=== PATIENT | female | born 1990 | race Caucasian/White ===

== ENCOUNTER 2017-03-01 11:38 | Emergency (ER) | payer OTHER ==
[2017-03-01 12:09] LABS: BASOPHILS 0.1 % (0-2); EOSINOPHILS 0.7 % (0-7); HEMATOCRIT 33.2 % (36.0-48.0); HEMOGLOBIN 11.8 g/dL (12-16); IMMATURE GRANULOCYTES 0.2 % (0-5); LYMPHOCYTES 20.6 % (15-50); MCH 31.1 pg (26.0-34.0); MCHC 35.5 g/dL (31.0-37.0); MCV 87.4 fL (80.0-100.0); MEAN PLATELET VOLUME 8.8 fL (7.4-10.4); MONOCYTES 10.8 % (2-11); NEUTROPHILS 67.6 % (40-80); PLATELET COUNT 319 10x3/uL (130-400); RDW 13.4 % (11.5-14.5); WBC 12.1 10x3/uL (4.8-10.8)
[2017-03-01 12:32] LABS: ALBUMIN 3.9 g/dL (3.4-5.0); ALKALINE PHOSPHATASE 49 U/L (46-116); ALT (SGPT) 34 U/L (10-68); BILIRUBIN - TOTAL 0.85 mg/dL (0.2-1.3); CALC OSMOLALITY 280 mosm/kg (275-300); CARBON DIOXIDE 21.1 mmol/L (21.0-32.0); CHLORIDE - SERUM 107 mmol/L (98-107); CREATININE - SERUM 0.8 mg/dL (0.6-1.3); GLUCOSE 95 mg/dL (74-106); POTASSIUM - SERUM 3.2 mmol/L (3.5-5.1); PROTEIN - SERUM 7.4 g/dL (6.4-8.2); SODIUM 142 mmol/L (136-145); UREA NITROGEN 7 mg/dL (7-18); eGFR NON AFRICAN AMERICAN > 90 mL/min (90-120)
[2017-03-01 12:43] LABS: HCG - QUANTITATIVE (MATERNAL) 50065 mIU/mL
[2017-03-01 12:49] LABS: HCG SERUM POSITIVE (NEGATIVE)
[2017-03-01 12:51] LABS: UDS - AMPHET POSITIVE QUAL (NEGATIVE); UDS - BARB NEGATIVE QUAL (NEGATIVE); UDS - BENZO NEGATIVE QUAL (NEGATIVE); UDS - COCAINE NEGATIVE QUAL (NEGATIVE); UDS - METH NEGATIVE QUAL (NEGATIVE); UDS - OPIATE NEGATIVE QUAL (NEGATIVE); UDS - PCP NEGATIVE QUAL (NEGATIVE); UDS - THC POSITIVE QUAL (NEGATIVE)
[2017-03-01 13:10] LABS: APPEARANCE TURBID (CLEAR); BACTERIA MANY /hpf (NONE SEEN); BILIRUBIN NEGATIVE (NEGATIVE); COLOR DK YELLOW (YELLOW); GLUCOSE NEGATIVE (NEGATIVE); KETONE SMALL mg/dL (NEGATIVE); LEUKOCYTE ESTERASE 1+ (NEGATIVE); NITRITE NEGATIVE (NEGATIVE); PROTEIN 1+ mg/dL (NEGATIVE); SPECIFIC GRAVITY 1.025 (1.005-1.020)
[2017-03-01 13:11] LABS: MUCUS >1+ /lpf (NONE SEEN)
== END 2017-03-01 14:09 | disposition home or self-care (01) ==
LOC: D.ER 11:38
PROVIDERS: Emergency Medicine; Nurse Practitioner Acute Care
DX: O26.892 Other specified pregnancy related conditions, second trimester (principal); Z3A.15 15 weeks gestation of pregnancy; F15.10 Other stimulant abuse, uncomplicated; F12.10 Cannabis abuse, uncomplicated; O02.81 Inappropriate change in quantitative human chorionic gonadotropin (hCG) in early pregnancy; N76.0 Acute vaginitis; F41.9 Anxiety disorder, unspecified; R45.1 Restlessness and agitation; F32.9 Major depressive disorder, single episode, unspecified; F17.200 Nicotine dependence, unspecified, uncomplicated

== ENCOUNTER 2017-03-16 21:02 | Emergency (ER) | payer OTHER | END 2017-03-16 22:00 | disposition left against medical advice (07) | LOC: D.ER 21:02 | DX: R10.13 Epigastric pain (principal) ==

== ENCOUNTER → 2017-04-26 19:17 | Outpatient (CLI) | payer OTHER | END | disposition home or self-care (01) | LOC: D.LDO 19:17 → D.ER 19:17 → EDSTATUS 19:19 | DX: O26.892 Other specified pregnancy related conditions, second trimester (principal); Z3A.21 21 weeks gestation of pregnancy; R10.9 Unspecified abdominal pain ==

== ENCOUNTER 2017-06-22 19:51 | Outpatient (CLI) | payer MEDICAID ==
[2017-08-13 16:03] VITALS: BMI 37.4
== END 2017-06-22 20:45 | disposition home or self-care (01) ==
LOC: D.LDO 19:51
DX: O26.899 Other specified pregnancy related conditions, unspecified trimester (principal); Z3A.00 Weeks of gestation of pregnancy not specified

== ENCOUNTER 2017-07-21 00:35 | Outpatient (CLI) | payer MEDICAID ==
[2017-08-13 16:03] VITALS: BMI 37.4
== END 2017-07-21 01:12 | disposition home or self-care (01) ==
LOC: D.LDO 00:35
DX: O26.893 Other specified pregnancy related conditions, third trimester (principal); Z3A.33 33 weeks gestation of pregnancy; K82.9 Disease of gallbladder, unspecified

== ENCOUNTER 2017-08-13 12:36 | Inpatient (IN) | payer MEDICAID ==
[~2017-08-13] VITALS: Ht 185.4 cm; Wt 128.4 kg
--- NOTE | ~2017-08-13 | DS ---
PATIENT:CHRISTAL TEJADA :89 MEDICAL RECORD: [id number] DISCHARGE SUMMARY ADMISSION DATE: 08/13/17 DISCHARGE DATE: 08/16/17 HISTORY: The patient is a 27-year-old G1, P0, at 36 weeks and 6 days. The patient with elevated blood pressures in the office and sent to L&D for evaluation. Upon examination and evaluation, the patient with a reactive NST; however, with baseline changed to approximately 100, moderate variability without any decels. Biophysical profile was performed and found to be 6/10. The patient with continued elevated blood pressures, but not in the severe range. Decision at that time made to proceed with induction of labor due to gestational hypertension with possible mild preeclampsia and biophysical profile of 10. The patient was noted to be AB negative, group B strep unknown and rubella immune, and the patient had a past medical history significant for; 1. 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 2. THC. 3. Active cholelithiasis. 4. Positive for tobacco. 5. Obesity. 6. Rh negative. The patient also has history of asthma and depression and reported bipolar disorder. SURGICAL HISTORY: Significant for tonsillectomy and adenoidectomy. ALLERGIES: The patient reported no known allergies. MEDICATIONS: Included Tylenol PM and vitamins. FAMILY HISTORY: The patient reported a family history significant for a parent with cardiovascular disease and a sibling with diabetes. SOCIAL HISTORY: The patient reported a social history significant for smoking everyday, past use of marijuana and methamphetamine at the present. PHYSICAL EXAMINATION: VITAL SIGNS: On initial examination of the patient noted to be afebrile, blood pressures range in the 140s to 150s over 60s to 90s. LUNGS: Clear to auscultation. CARDIOVASCULAR: Regular rate and rhythm. PELVIC: Uterus was appropriately sized and nontender. EXTREMITIES: Lower extremities were free of Homans sign, swelling or erythema. On initial assessment, heart rate tracing was noted to be at approximately 100, moderate variability and contractions. LABORATORY DATA: Preeclamptic labs were noted to be within normal limits. Normal LFTs, normal creatinine. Hemoglobin was 10.6 with a white count of 12.1 and a platelet count of 242. UDS was negative. Urine was negative for protein. ASSESSMENT AND PLAN: At this time was; 1. Gestational hypertension at 36 weeks and 6 days. 2. The biophysical profile of 01/09. 3. History of polysubstance abuse with methamphetamine. The patient reports in DISCHARGE SUMMARY REPORT [id number] CHRISTAL TEJADA recovery. 4. Positive smoker. 5. Cholelithiasis. 6. Rh negative. Plan at that time for Pitocin induction of labor for gestational hypertension and biophysical profile 01/09. The patient continued to have a subsequent heart rate between 100 and 110 with moderate variability and accelerations. Risks of prematurity were discussed with the patient. The patient was placed on Pitocin for approximately 16 hours without appreciable cervical change. The patient had a category 1 tracing throughout. Options were discussed, it was felt at that time because of the biophysical and gestational hypertension and the patient now at term, that the safest route of action would be to proceed with . Risks and benefits were explained. The patient voiced understanding and consent. Primary low transverse section was performed and the operative report is as dictated. The patient did well overnight on postop day #0 with a Dilaudid GAS REVERSER, IV Toradol, IV fluids, tolerating clear liquid diet. Uterus was infraumbilical and appropriately tender. Lower extremities were free of Homans sign. Soares catheter in place and draining freely. On the morning of postop day #1, status post low transverse section, the patient continued to do well. Vital signs are stable. The patient was afebrile. Hemoglobin was stable. Incision was clean, dry and intact. Uterus was infraumbilical and appropriately tender. At that time, the patient was advanced to general diet, p.o. pain meds. Soares was discontinued and ambulation was begun. The patient continued to do well overnight on postop day #1. On the morning of postop day #2, vital signs remained stable. The patient was afebrile, blood pressure normalizing, hemoglobin was found to be stable. Incision was clean, dry and intact. Uterus was infraumbilical and appropriately tender. Minimal lochia at that time. The patient was tolerating general diet, p.o. pain meds and ambulating well. The patient was discharged home on postop day #2 with instructions to follow up in 1 week for staple removal and for blood pressure check. TRANSINT:[id number] Voice Confirmation ID: [id number] DOCUMENT ID: [id number] VINI POZO MD CC: [id number] DICTATION DATE: 09/11/17 0628 HOUSEKEEPER: 09/11/17 1009 DIS IN 08/16/17 [place] [id number] [place] [id number]
[2017-08-13 14:05] LABS: BASOPHILS 0.1 % (0-2); EOSINOPHILS 0.9 % (0-7); HEMATOCRIT 32.6 % (36.0-48.0); HEMOGLOBIN 10.6 g/dL (12-16); IMMATURE GRANULOCYTES 0.2 % (0-5); LYMPHOCYTES 14.7 % (15-50); MCH 30.7 pg (26.0-34.0); MCHC 32.5 g/dL (31.0-37.0); MCV 94.5 fL (80.0-100.0); MEAN PLATELET VOLUME 9.9 fL (7.4-10.4); MONOCYTES 10.2 % (2-11); NEUTROPHILS 73.9 % (40-80); RBC 3.45 10x6/uL (4.00-5.40); RDW 13.6 % (11.5-14.5); WBC 12.1 10x3/uL (4.8-10.8)
[2017-08-13 14:08] LABS: APPEARANCE CLEAR (CLEAR); BILIRUBIN NEGATIVE (NEGATIVE); COLOR YELLOW (YELLOW); GLUCOSE NEGATIVE (NEGATIVE); KETONE NEGATIVE (NEGATIVE); NITRITE NEGATIVE (NEGATIVE); PLATELET COUNT 242 10x3/uL (130-400); PROTEIN NEGATIVE (NEGATIVE); UROBILINOGEN NORMAL (NORMAL)
[2017-08-13 14:23] LABS: ALBUMIN 2.6 g/dL (3.4-5.0); ALKALINE PHOSPHATASE 70 U/L (46-116); ALT (SGPT) 16 U/L (10-68); BILIRUBIN - INDIRECT 0.11 mg/dL (0.00-1.00); BILIRUBIN - TOTAL 0.14 mg/dL (0.2-1.3); CALC OSMOLALITY 266 mosm/kg (275-300); CALCIUM 8.8 mg/dL (8.5-10.1); CARBON DIOXIDE 23.6 mmol/L (21.0-32.0); CHLORIDE - SERUM 103 mmol/L (98-107); CREATININE - SERUM 0.6 mg/dL (0.6-1.3); GLUCOSE 81 mg/dL (74-106); POTASSIUM - SERUM 3.9 mmol/L (3.5-5.1); PROTEIN - SERUM 6.3 g/dL (6.4-8.2); SODIUM 135 mmol/L (136-145); UREA NITROGEN 7 mg/dL (7-18); URIC ACID 4.3 mg/dL (2.6-7.2); eGFR NON AFRICAN AMERICAN > 90 mL/min (90-120)
[2017-08-13 14:24] LABS: BILIRUBIN - DIRECT 0.03 mg/dL (0.00-0.30)
[2017-08-13] MEDS ORDERED: TYLENOL PM1 TAB PO (16:02)
[2017-08-13] MEDS ORDERED: PRENATAL COMPLE1 TAB PO (16:02)
[2017-08-13 16:03] VITALS: BP 141/64; Ht 185.4 cm; Wt 128.4 kg
[2017-08-13 16:18] LABS: UDS - AMPHET NEGATIVE QUAL (NEGATIVE); UDS - BARB NEGATIVE QUAL (NEGATIVE); UDS - BENZO NEGATIVE QUAL (NEGATIVE); UDS - COCAINE NEGATIVE QUAL (NEGATIVE); UDS - OPIATE NEGATIVE QUAL (NEGATIVE); UDS - PCP NEGATIVE QUAL (NEGATIVE); UDS - THC NEGATIVE QUAL (NEGATIVE)
[2017-08-14] VITALS (15 sets, daily range): BP systolic 112–164; BP diastolic 58–91
[2017-08-14 20:12] LABS: BASOPHILS 0.2 % (0-2); EOSINOPHILS 0.4 % (0-7); HEMATOCRIT 30.2 % (36.0-48.0); HEMOGLOBIN 9.9 g/dL (12-16); IMMATURE GRANULOCYTES 0.5 % (0-5); LYMPHOCYTES 10.4 % (15-50); MCH 30.4 pg (26.0-34.0); MCHC 32.8 g/dL (31.0-37.0); MCV 92.6 fL (80.0-100.0); MEAN PLATELET VOLUME 10.2 fL (7.4-10.4); MONOCYTES 7.7 % (2-11); NEUTROPHILS 80.8 % (40-80); PLATELET COUNT 195 10x3/uL (130-400); RBC 3.26 10x6/uL (4.00-5.40); RDW 13.2 % (11.5-14.5)
[2017-08-15 00:56] VITALS: BP 130/72
[2017-08-15 05:49] VITALS: BP 122/71
[2017-08-15 06:16] LABS: BASOPHILS 0.1 % (0-2); EOSINOPHILS 0.6 % (0-7); HEMATOCRIT 29.7 % (36.0-48.0); HEMOGLOBIN 9.6 g/dL (12-16); IMMATURE GRANULOCYTES 0.4 % (0-5); LYMPHOCYTES 21.8 % (15-50); MCH 30.2 pg (26.0-34.0); MCHC 32.3 g/dL (31.0-37.0); MCV 93.4 fL (80.0-100.0); MONOCYTES 11.3 % (2-11); NEUTROPHILS 65.8 % (40-80); PLATELET COUNT 197 10x3/uL (130-400); RBC 3.18 10x6/uL (4.00-5.40); RDW 13.3 % (11.5-14.5)
[2017-08-15 06:23] LABS: WBC 7.9 10x3/uL (4.8-10.8)
[2017-08-15 07:25] VITALS: BP 125/58
[2017-08-15 13:13] VITALS: BP 130/60
[2017-08-15 19:13] VITALS: BP 151/70
[2017-08-16 00:31] VITALS: BP 138/64
[2017-08-16 04:21] VITALS: BP 127/61
[2017-08-16 08:59] VITALS: BP 136/62
[2017-08-17 03:10] LABS: RAPID PLASMA REAGIN Non Reactive (Non Reactive)
== END 2017-08-16 13:55 | disposition home or self-care (01) | DRG 765 ==
LOC: D.LDO 12:36 → D.LD 15:25
PROVIDERS: Obstetrics & Gynecology
PROC: 10D00Z1 Extraction of Products of Conception, Low, Open Approach (ICD-10-PCS; principal; 2017-08-14 13:00)
DX: O13.4 Gestational [pregnancy-induced] hypertension without significant proteinuria, complicating childbirth (principal); O98.32 Other infections with a predominantly sexual mode of transmission complicating childbirth; Z3A.36 36 weeks gestation of pregnancy; Z37.0 Single live birth; O99.214 Obesity complicating childbirth; O99.334 Smoking (tobacco) complicating childbirth; O26.893 Other specified pregnancy related conditions, third trimester; Z67.91 Unspecified blood type, Rh negative; O99.62 Diseases of the digestive system complicating childbirth

== ENCOUNTER 2019-09-26 00:09 | Emergency (ER) | payer MEDICAID ==
[~2019-09-26] VITALS: Ht 185.4 cm; Wt 95.5 kg
[~2019-09-26 00:09] MED LIST: PRENATAL COMPLE1 TAB PO; TYLENOL PM1 TAB PO
[2019-09-26 00:19] VITALS: Ht 185.4 cm; Wt 95.5 kg
[2019-09-26 00:52] LABS: BASOPHILS 0.3 % (0-2); EOSINOPHILS 3.1 % (0-7); HEMATOCRIT 37.6 % (36.0-48.0); HEMOGLOBIN 12.8 g/dL (12-16); IMMATURE GRANULOCYTES 0.1 % (0-5); LYMPHOCYTES 29.5 % (15-50); MCH 31.2 pg (26.0-34.0); MCV 91.7 fL (80.0-100.0); MEAN PLATELET VOLUME 8.8 fL (7.4-10.4); MONOCYTES 5.9 % (2-11); NEUTROPHILS 61.1 % (40-80); RDW 12.9 % (11.5-14.5); WBC 7.7 10x3/uL (4.8-10.8)
[2019-09-26 00:53] LABS: CALC OSMOLALITY 287 mosm/kg (275-300); CALCIUM 8.1 mg/dL (8.5-10.1); CARBON DIOXIDE 28.5 mmol/L (21.0-32.0); CHLORIDE - SERUM 107 mmol/L (98-107); CREATININE - SERUM 0.9 mg/dL (0.6-1.3); PLATELET COUNT 273 10x3/uL (130-400); POTASSIUM - SERUM 3.8 mmol/L (3.5-5.1); SODIUM 144 mmol/L (136-145); UREA NITROGEN 10 mg/dL (7-18); eGFR NON AFRICAN AMERICAN 80 mL/min (90-120)
[2019-09-26 00:55] LABS: HCG SERUM NEGATIVE (NEGATIVE)
[2019-09-26 00:57] LABS: GLUCOSE 135 mg/dL (74-106)
[2019-09-26 00:59] LABS: ALBUMIN 3.7 g/dL (3.4-5.0); ALKALINE PHOSPHATASE 72 U/L (30-120); ALT (SGPT) 151 U/L (10-68); BILIRUBIN - TOTAL 0.16 mg/dL (0.2-1.3); LIPASE 121 U/L (73-393); PROTEIN - SERUM 6.7 g/dL (6.4-8.2)
[2019-09-26] MEDS ORDERED: HYDROCODON-ACE1 EAC7 PO (01:04)
[2019-09-26 01:15] VITALS: BP 138/82
== END 2019-09-26 01:15 | disposition home or self-care (01) ==
LOC: D.ER 00:09
PROVIDERS: Emergency Medicine
DX: K80.50 Calculus of bile duct without cholangitis or cholecystitis without obstruction (principal); J45.909 Unspecified asthma, uncomplicated; Z72.0 Tobacco use; R10.11 Right upper quadrant pain

== ENCOUNTER 2020-01-24 15:32 | Inpatient (IN) | payer MEDICAID ==
[~2020-01-24] VITALS: Ht 185.4 cm; Wt 104.5 kg
[~2020-01-24 15:32] MED LIST changes: +HYDROCODON-ACE1 EAC7 PO
[2020-01-24 16:08] LABS: BASOPHILS 0.3 % (0-2); EOSINOPHILS 2.2 % (0-7); HEMATOCRIT 39.1 % (36.0-48.0); HEMOGLOBIN 13.1 g/dL (12-16); IMMATURE GRANULOCYTES 0.2 % (0-5); LYMPHOCYTES 15.5 % (15-50); MCH 30.7 pg (26.0-34.0); MCHC 33.5 g/dL (31.0-37.0); MCV 91.6 fL (80.0-100.0); MONOCYTES 6.5 % (2-11); NEUTROPHILS 75.3 % (40-80); PLATELET COUNT 298 10x3/uL (130-400); RBC 4.27 10x6/uL (4.00-5.40); RDW 12.6 % (11.5-14.5)
[2020-01-24 16:19] LABS: ANION GAP 8.8 mmol/L (8-16); CALCIUM 9.4 mg/dL (8.5-10.1); CREATININE - SERUM 1.2 mg/dL (0.6-1.3); POTASSIUM - SERUM 3.8 mmol/L (3.5-5.1)
[2020-01-24 16:22] LABS: BILIRUBIN NEGATIVE (NEGATIVE); GLUCOSE NEGATIVE (NEGATIVE); KETONE SMALL mg/dL (NEGATIVE); NITRITE NEGATIVE (NEGATIVE); SPECIFIC GRAVITY 1.015 (1.005-1.020); UROBILINOGEN NORMAL (NORMAL)
[2020-01-24 16:23] LABS: BACTERIA MODERATE /hpf (NEGATIVE); EPITHELIAL CELLS 0-5 /hpf (0-5); RED CELLS - URINE OCC /hpf (0-5); WHITE CELLS - URINE 0-5 /hpf (NEGATIVE)
[2020-01-24 16:24] LABS: HCG URINE NEGATIVE (NEGATIVE)
[2020-01-24 16:25] LABS: ALBUMIN 4.6 g/dL (3.4-5.0); BILIRUBIN - TOTAL 0.83 mg/dL (0.2-1.3); PROTEIN - SERUM 7.8 g/dL (6.4-8.2)
--- NOTE | 2020-01-24 19:00 | NUR ---
PATIENT TO U/S VIA W/C.
[2020-01-24 20:53] LABS: INR 1.07 (0.85-1.17); PROTIME 13.8 SECONDS (11.6-15.0)
--- NOTE | 2020-01-24 21:02 | NUR ---
PT SITTING UP IN BED. PT DENIES ANY COMPLAITNS. NO NEEDS AT THIS TIME.
--- NOTE | 2020-01-24 21:30 | NUR ---
MEFOXIN INFUSION COMPLETE AT THIS TIME.
--- NOTE | 2020-01-25 00:15 | NUR ---
RECIEVED TO ROOM VIA WHEELCHAIR ACCOMPANIED BY ER STAFF. A&O X 4, AMBULATES INDEPENDENTLY. DENIES N/V/PAIN. IV TO RIGHT AC PATENT. NS INFUSING AT 125. VERBALIZED UNDERSTANDING OF NPO STATUS. DENIES CURENT MEDICATIONS OTHER THAN MEDICAL MARIJUANA. REPORTS SHE IS A DAILY SMOKER. PT INFORMATION PACKET AND SECURITY CODE SHEET GIVEN. DENIES NEEDS AT THIS TIME, WILL CTM.
[2020-01-25 02:13] VITALS: BMI 30.4
[2020-01-25 04:00] VITALS: BP 110/27
[2020-01-25 05:29] LABS: HEMATOCRIT 36.8 % (36.0-48.0); HEMOGLOBIN 12.1 g/dL (12-16); MCH 30.3 pg (26.0-34.0); MCHC 32.9 g/dL (31.0-37.0); PLATELET COUNT 261 10x3/uL (130-400); RDW 12.6 % (11.5-14.5)
[2020-01-25 05:47] LABS: ANION GAP 8.4 mmol/L (8-16); CALCIUM 8.5 mg/dL (8.5-10.1); CARBON DIOXIDE 28.5 mmol/L (21.0-32.0); CREATININE - SERUM 1.1 mg/dL (0.6-1.3); POTASSIUM - SERUM 3.9 mmol/L (3.5-5.1); WBC 6.3 10x3/uL (4.8-10.8)
[2020-01-25 10:29] VITALS: Ht 185.4 cm; Wt 104.5 kg
[2020-01-25 11:05] VITALS: BP 124/52
[2020-01-25 12:16] LABS: EOSINOPHILS 1 % (0-7); LYMPHOCYTES 31 % (15-50); MONOCYTES 10 % (2-11); NEUTROPHILS 58 % (40-80); PLATELET ESTIMATE NORMAL
[2020-01-25] MEDS ORDERED: HYDROCODON-ACE1 EAC7 PO (14:08)
== END 2020-01-25 19:15 | disposition home or self-care (01) | DRG 419 ==
LOC: D.ER 15:32 → D.MS 20:50
PROVIDERS: Family Medicine; ADMIT Surgery; ATTEND Surgery
PROC: 0FT44ZZ Resection of Gallbladder, Percutaneous Endoscopic Approach (ICD-10-PCS; principal; 2020-01-25 13:15)
DX: K80.00 Calculus of gallbladder with acute cholecystitis without obstruction (principal)

== ENCOUNTER 2020-10-03 11:06 | Emergency (ER) | payer MEDICAID ==
[~2020-10-03] VITALS: Ht 185.4 cm; Wt 101.2 kg
[2020-10-03 11:11] VITALS: Ht 185.4 cm; Wt 101.2 kg
[2020-10-03] MEDS ORDERED: PHENERGAN25 M1 PO (11:14)
[2020-10-03 11:49] LABS: BASOPHILS 0.1 % (0-2); EOSINOPHILS 1.5 % (0-7); HEMATOCRIT 33.7 % (36.0-48.0); HEMOGLOBIN 11.5 g/dL (12-16); IMMATURE GRANULOCYTES 0.2 % (0-5); LYMPHOCYTE ABS# 1.24 10x3/uL (1.18-3.74); LYMPHOCYTES 13.4 % (15-50); MCH 31.7 pg (26.0-34.0); MCHC 34.1 g/dL (31.0-37.0); MCV 92.8 fL (80.0-100.0); MONOCYTES 7.9 % (2-11); NEUTROPHILS 76.9 % (40-80); PLATELET COUNT 218 10x3/uL (130-400); RBC 3.63 10x6/uL (4.00-5.40); WBC 9.2 10x3/uL (4.8-10.8)
[2020-10-03 12:02] LABS: CALC OSMOLALITY 265 mosm/kg (275-300); CALCIUM 9.1 mg/dL (8.5-10.1); CARBON DIOXIDE 27.1 mmol/L (21.0-32.0); CHLORIDE - SERUM 103 mmol/L (98-107); CREATININE - SERUM 0.7 mg/dL (0.6-1.3); GLUCOSE 86 mg/dL (74-106); POTASSIUM - SERUM 3.7 mmol/L (3.5-5.1); SODIUM 135 mmol/L (136-145); UREA NITROGEN 5 mg/dL (7-18); eGFR NON AFRICAN AMERICAN > 90 mL/min (90-120)
[2020-10-03 12:22] LABS: BILIRUBIN NEGATIVE (NEGATIVE); KETONE NEGATIVE (NEGATIVE); NITRITE NEGATIVE (NEGATIVE); UROBILINOGEN NORMAL mg/dL (< 2)
[2020-10-03 12:24] LABS: ALBUMIN 3.3 g/dL (3.4-5.0); ALKALINE PHOSPHATASE 42 U/L (30-120); ALT (SGPT) 33 U/L (10-68); BACTERIA FEW HPF (NONE SEEN); BILIRUBIN - TOTAL 0.18 mg/dL (0.2-1.3); HCG - QUANTITATIVE (MATERNAL) 20857 mIU/mL; PROTEIN - SERUM 6.3 g/dL (6.4-8.2); SQUAMOUS EPITHELIAL 0-5 HPF (0-4); WHITE CELLS - URINE 0-5 HPF (0-4)
[2020-10-03 13:32] VITALS: BP 126/63
== END 2020-10-03 13:33 | disposition home or self-care (01) ==
LOC: D.ER 11:06
PROVIDERS: Family Medicine
DX: O99.012 Anemia complicating pregnancy, second trimester (principal); Z3A.15 15 weeks gestation of pregnancy; R10.9 Unspecified abdominal pain

== ENCOUNTER 2020-12-26 20:33 | Emergency (ER) | payer MEDICAID ==
[~2020-12-26] VITALS: Ht 182.9 cm; Wt 107.7 kg
[~2020-12-26 20:33] MED LIST changes: +PHENERGAN25 M1 PO
[2020-12-26 20:39] VITALS: Ht 182.9 cm; Wt 107.7 kg
[2020-12-26 21:40] LABS: BASOPHILS 0.2 % (0-2); EOSINOPHILS 1.4 % (0-7); HEMATOCRIT 29.2 % (36.0-48.0); LYMPHOCYTES 16.6 % (15-50); MCH 31.6 pg (26.0-34.0); MCHC 34.1 g/dL (31.0-37.0); MCV 92.6 fL (80.0-100.0); MEAN PLATELET VOLUME 7.8 fL (7.4-10.4); MONOCYTES 7.5 % (2-11); NEUTROPHILS 74.3 % (40-80); PLATELET COUNT 252 10x3/uL (130-400); RBC 3.15 10x6/uL (4.00-5.40); RDW 13.3 % (11.5-14.5); WBC 12.4 10x3/uL (4.8-10.8)
[2020-12-26 21:41] LABS: BILIRUBIN NEGATIVE (NEGATIVE); KETONE NEGATIVE (NEGATIVE); NITRITE NEGATIVE (NEGATIVE); UROBILINOGEN NORMAL mg/dL (< 2)
[2020-12-26 21:49] LABS: CALC OSMOLALITY 276 mosm/kg (275-300); CALCIUM 8.9 mg/dL (8.5-10.1); CARBON DIOXIDE 23.3 mmol/L (21.0-32.0); CHLORIDE - SERUM 105 mmol/L (98-107); CREATININE - SERUM 0.7 mg/dL (0.6-1.3); GLUCOSE 88 mg/dL (74-106); POTASSIUM - SERUM 3.7 mmol/L (3.5-5.1); SODIUM 140 mmol/L (136-145); UREA NITROGEN 9 mg/dL (7-18); eGFR NON AFRICAN AMERICAN > 90 mL/min (90-120)
[2020-12-26 22:15] LABS: ALBUMIN 2.8 g/dL (3.4-5.0); ALKALINE PHOSPHATASE 45 U/L (30-120); ALT (SGPT) 18 U/L (10-68); BILIRUBIN - TOTAL 0.14 mg/dL (0.2-1.3); HCG - QUANTITATIVE (MATERNAL) 7239 mIU/mL; MAGNESIUM - SERUM 1.8 mg/dL (1.8-2.4); PROTEIN - SERUM 6.3 g/dL (6.4-8.2)
[2020-12-26 22:50] VITALS: BP 146/59
== END 2020-12-26 22:50 | disposition short-term general hospital (02) ==
LOC: D.ER 20:33
PROVIDERS: Family Medicine
DX: O26.892 Other specified pregnancy related conditions, second trimester (principal); Z3A.27 27 weeks gestation of pregnancy; R07.81 Pleurodynia; R10.9 Unspecified abdominal pain; I10 Essential (primary) hypertension

== ENCOUNTER 2020-12-31 08:46 | Emergency (ER) | payer MEDICAID ==
[~2020-12-31] VITALS: Ht 182.9 cm; Wt 107.7 kg
[2020-12-31 08:55] VITALS: BP 130/59; Ht 182.9 cm; Wt 107.7 kg
[2020-12-31 10:00] LABS: BASOPHILS 0.5 % (0-2); EOSINOPHILS 0.9 % (0-7); HEMATOCRIT 31.5 % (36.0-48.0); HEMOGLOBIN 10.6 g/dL (12-16); MCH 31.7 pg (26.0-34.0); MCHC 33.6 g/dL (31.0-37.0); MCV 94.3 fL (80.0-100.0); MEAN PLATELET VOLUME 7.5 fL (7.4-10.4); MONOCYTES 5.9 % (2-11); NEUTROPHILS 81.7 % (40-80); PLATELET COUNT 250 10x3/uL (130-400); RBC 3.34 10x6/uL (4.00-5.40); RDW 13.4 % (11.5-14.5); WBC 11.3 10x3/uL (4.8-10.8)
[2020-12-31 10:13] LABS: APTT 25.1 SECONDS (22.8-39.4); INR 1.14 (0.85-1.17); PROTIME 13.5 SECONDS (11.6-15.0)
[2020-12-31 10:14] LABS: D-DIMER-QUANTITATIVE 0.77 ug/mLFEU (0.20-0.54)
[2020-12-31 10:15] LABS: CALC OSMOLALITY 273 mosm/kg (275-300); CALCIUM 8.4 mg/dL (8.5-10.1); CARBON DIOXIDE 23.7 mmol/L (21.0-32.0); CHLORIDE - SERUM 104 mmol/L (98-107); CREATININE - SERUM 0.7 mg/dL (0.6-1.3); GLUCOSE 94 mg/dL (74-106); POTASSIUM - SERUM 3.8 mmol/L (3.5-5.1); SODIUM 138 mmol/L (136-145); UREA NITROGEN 6 mg/dL (7-18); eGFR NON AFRICAN AMERICAN > 90 mL/min (90-120)
[2020-12-31 10:23] LABS: ALBUMIN 2.8 g/dL (3.4-5.0); ALKALINE PHOSPHATASE 49 U/L (30-120); ALT (SGPT) 17 U/L (10-68); BILIRUBIN - TOTAL 0.19 mg/dL (0.2-1.3); PROTEIN - SERUM 6.3 g/dL (6.4-8.2)
[2020-12-31] MEDS ORDERED: CYCLOBENZAPRINE5 MG PO (13:07)
== END 2020-12-31 13:18 | disposition home or self-care (01) ==
LOC: D.ER 08:46
PROVIDERS: Student in an Organized Health Care Education/Training Program
DX: O26.893 Other specified pregnancy related conditions, third trimester (principal); Z3A.28 28 weeks gestation of pregnancy; R07.89 Other chest pain

== ENCOUNTER 2021-01-01 10:39 | Inpatient (IN) | payer MEDICAID ==
[~2021-01-01] VITALS: Ht 182.9 cm; Wt 108.9 kg
[~2021-01-01 10:39] MED LIST changes: +CYCLOBENZAPRINE5 MG PO
[2021-01-01 14:13] LABS: BASOPHILS 0.4 % (0-2); EOSINOPHILS 0.8 % (0-7); HEMATOCRIT 34.5 % (36.0-48.0); HEMOGLOBIN 11.8 g/dL (12-16); LYMPHOCYTES 13.4 % (15-50); MCH 31.8 pg (26.0-34.0); MCHC 34.1 g/dL (31.0-37.0); MCV 93.3 fL (80.0-100.0); MEAN PLATELET VOLUME 7.6 fL (7.4-10.4); MONOCYTES 6.2 % (2-11); NEUTROPHILS 79.2 % (40-80); PLATELET COUNT 278 10x3/uL (130-400); RDW 13.5 % (11.5-14.5); WBC 11.2 10x3/uL (4.8-10.8)
[2021-01-01 14:16] LABS: BILIRUBIN NEGATIVE (NEGATIVE); KETONE NEGATIVE (NEGATIVE); NITRITE NEGATIVE (NEGATIVE); UROBILINOGEN NORMAL mg/dL (< 2)
[2021-01-01 14:17] LABS: CALC OSMOLALITY 269 mosm/kg (275-300); CALCIUM 8.9 mg/dL (8.5-10.1); CARBON DIOXIDE 25.3 mmol/L (21.0-32.0); CHLORIDE - SERUM 103 mmol/L (98-107); CREATININE - SERUM 0.6 mg/dL (0.6-1.3); GLUCOSE 91 mg/dL (74-106); POTASSIUM - SERUM 3.4 mmol/L (3.5-5.1); SODIUM 136 mmol/L (136-145); UREA NITROGEN 6 mg/dL (7-18); eGFR NON AFRICAN AMERICAN > 90 mL/min (90-120)
[2021-01-01 14:23] LABS: ALBUMIN 3.2 g/dL (3.4-5.0); ALKALINE PHOSPHATASE 61 U/L (30-120); ALT (SGPT) 20 U/L (10-68); BILIRUBIN - DIRECT 0.08 mg/dL (0.00-0.30); BILIRUBIN - INDIRECT 0.14 mg/dL (0.00-1.00); BILIRUBIN - TOTAL 0.22 mg/dL (0.2-1.3); PROTEIN - SERUM 7.1 g/dL (6.4-8.2); URIC ACID 2.9 mg/dL (2.6-7.2)
[2021-01-01 17:43] VITALS: BP 130/62; Ht 182.9 cm; Wt 108.9 kg
[2021-01-02 13:01] LABS: PROTEIN - URINE 11.5 mg/dL (0.0-11.9)
[2021-01-02] MEDS ORDERED: NORMODYNE / TR100 MG PO (13:36)
[2021-01-02] MEDS ORDERED: HYDROCODON-ACE1 EAC7 PO (13:37)
== END 2021-01-02 14:10 | disposition home or self-care (01) | DRG 833 ==
LOC: D.LDO 10:39 → D.LD 13:49
PROVIDERS: ADMIT Obstetrics & Gynecology; ATTEND Obstetrics & Gynecology
DX: O13.3 Gestational [pregnancy-induced] hypertension without significant proteinuria, third trimester (principal); Z3A.28 28 weeks gestation of pregnancy; F15.10 Other stimulant abuse, uncomplicated; O99.343 Other mental disorders complicating pregnancy, third trimester; F41.8 Other specified anxiety disorders

== ENCOUNTER 2021-01-07 10:50 | Outpatient (CLI) | payer MEDICAID ==
[2021-01-01 17:43] VITALS: BMI 32.6
[~2021-01-07 10:50] MED LIST changes: +NORMODYNE / TR100 MG PO
[2021-01-07 11:45] LABS: BASOPHILS 0.2 % (0-2); EOSINOPHILS 1.1 % (0-7); HEMATOCRIT 29.7 % (36.0-48.0); HEMOGLOBIN 10.1 g/dL (12-16); LYMPHOCYTES 11.6 % (15-50); MCV 94.2 fL (80.0-100.0); MEAN PLATELET VOLUME 7.9 fL (7.4-10.4); MONOCYTES 5.7 % (2-11); NEUTROPHILS 81.4 % (40-80); RBC 3.15 10x6/uL (4.00-5.40); RDW 13.5 % (11.5-14.5); WBC 12.3 10x3/uL (4.8-10.8)
[2021-01-07 11:47] LABS: PLATELET COUNT 215 10x3/uL (130-400)
[2021-01-07 11:52] LABS: CALC OSMOLALITY 274 mosm/kg (275-300); CALCIUM 8.2 mg/dL (8.5-10.1); CARBON DIOXIDE 23.5 mmol/L (21.0-32.0); CHLORIDE - SERUM 103 mmol/L (98-107); CREATININE - SERUM 0.7 mg/dL (0.6-1.3); GLUCOSE 109 mg/dL (74-106); POTASSIUM - SERUM 3.7 mmol/L (3.5-5.1); SODIUM 138 mmol/L (136-145); UREA NITROGEN 6 mg/dL (7-18); eGFR NON AFRICAN AMERICAN > 90 mL/min (90-120)
[2021-01-07 11:57] LABS: ALBUMIN 2.5 g/dL (3.4-5.0); ALKALINE PHOSPHATASE 51 U/L (30-120); ALT (SGPT) 20 U/L (10-68); BILIRUBIN - DIRECT 0.05 mg/dL (0.00-0.30); BILIRUBIN - INDIRECT 0.12 mg/dL (0.00-1.00); BILIRUBIN - TOTAL 0.17 mg/dL (0.2-1.3); PROTEIN - SERUM 5.6 g/dL (6.4-8.2); URIC ACID 3.7 mg/dL (2.6-7.2)
== END 2021-01-07 12:15 | disposition home or self-care (01) ==
LOC: D.LDO 10:50
PROVIDERS: ATTEND Obstetrics & Gynecology
DX: O35.9XX0 Maternal care for (suspected) fetal abnormality and damage, unspecified, not applicable or unspecified (principal)

== ENCOUNTER → 2021-01-10 11:40 | Outpatient (CLI) | payer MEDICAID ==
[2021-01-01 17:43] VITALS: BMI 32.6
== END | disposition home or self-care (01) ==
LOC: D.LDO 11:40
PROVIDERS: ATTEND Obstetrics & Gynecology
DX: O16.9 Unspecified maternal hypertension, unspecified trimester (principal)

== ENCOUNTER 2021-01-17 09:59 | Outpatient (CLI) | payer MEDICAID ==
[2021-01-01 17:43] VITALS: BMI 32.6
== END 2021-01-17 11:59 | disposition home or self-care (01) ==
LOC: D.LDO 09:59
PROVIDERS: ATTEND Obstetrics & Gynecology
DX: O26.899 Other specified pregnancy related conditions, unspecified trimester (principal); Z3A.30 30 weeks gestation of pregnancy

== ENCOUNTER 2021-01-24 11:01 | Outpatient (CLI) | payer MEDICAID ==
[2021-01-01 17:43] VITALS: BMI 32.6
[2021-01-24 12:17] LABS: BASOPHILS 0.2 % (0-2); EOSINOPHILS 1.2 % (0-7); HEMATOCRIT 30.6 % (36.0-48.0); HEMOGLOBIN 10.2 g/dL (12-16); LYMPHOCYTES 12.7 % (15-50); MCH 31.3 pg (26.0-34.0); MCHC 33.4 g/dL (31.0-37.0); MCV 93.5 fL (80.0-100.0); MEAN PLATELET VOLUME 7.5 fL (7.4-10.4); MONOCYTES 7.4 % (2-11); NEUTROPHILS 78.5 % (40-80); PLATELET COUNT 241 10x3/uL (130-400); RBC 3.28 10x6/uL (4.00-5.40); WBC 11.7 10x3/uL (4.8-10.8)
[2021-01-24 12:27] LABS: CALC OSMOLALITY 274 mosm/kg (275-300); CALCIUM 8.7 mg/dL (8.5-10.1); CARBON DIOXIDE 23.3 mmol/L (21.0-32.0); CHLORIDE - SERUM 105 mmol/L (98-107); CREATININE - SERUM 0.7 mg/dL (0.6-1.3); GLUCOSE 105 mg/dL (74-106); POTASSIUM - SERUM 3.8 mmol/L (3.5-5.1); SODIUM 138 mmol/L (136-145); UREA NITROGEN 9 mg/dL (7-18); eGFR NON AFRICAN AMERICAN > 90 mL/min (90-120)
[2021-01-24 12:31] LABS: ALT (SGPT) 21 U/L (10-68); URIC ACID 3.9 mg/dL (2.6-7.2)
== END 2021-01-24 12:34 | disposition home or self-care (01) ==
LOC: D.LDO 11:01
PROVIDERS: Obstetrics & Gynecology; ATTEND Student in an Organized Health Care Education/Training Program
DX: O16.9 Unspecified maternal hypertension, unspecified trimester (principal)

== ENCOUNTER → 2021-01-28 09:36 | Outpatient (CLI) | payer MEDICAID ==
[2021-01-01 17:43] VITALS: BMI 32.6
[2021-01-28 09:36] VITALS: BP 118/58
== END | disposition home or self-care (01) ==
LOC: D.LDO 09:36
PROVIDERS: ATTEND Obstetrics & Gynecology
DX: O16.9 Unspecified maternal hypertension, unspecified trimester (principal)

== ENCOUNTER 2021-01-31 10:25 | Outpatient (CLI) | payer MEDICAID ==
[2021-01-01 17:43] VITALS: BMI 32.6
[2021-01-31 12:35] LABS: BASOPHILS 0.2 % (0-2); EOSINOPHILS 1.2 % (0-7); HEMATOCRIT 29.2 % (36.0-48.0); LYMPHOCYTES 12.4 % (15-50); MCH 31.4 pg (26.0-34.0); MCHC 34.1 g/dL (31.0-37.0); MCV 92.3 fL (80.0-100.0); MEAN PLATELET VOLUME 7.9 fL (7.4-10.4); NEUTROPHILS 77.2 % (40-80); PLATELET COUNT 214 10x3/uL (130-400); RBC 3.17 10x6/uL (4.00-5.40); RDW 13.8 % (11.5-14.5); WBC 11.2 10x3/uL (4.8-10.8)
[2021-01-31 12:49] LABS: CALC OSMOLALITY 272 mosm/kg (275-300); CALCIUM 8.5 mg/dL (8.5-10.1); CHLORIDE - SERUM 105 mmol/L (98-107); CREATININE - SERUM 0.6 mg/dL (0.6-1.3); GLUCOSE 81 mg/dL (74-106); POTASSIUM - SERUM 3.6 mmol/L (3.5-5.1); SODIUM 138 mmol/L (136-145); UREA NITROGEN 7 mg/dL (7-18); eGFR NON AFRICAN AMERICAN > 90 mL/min (90-120)
[2021-01-31 12:55] LABS: ALBUMIN 2.6 g/dL (3.4-5.0); ALKALINE PHOSPHATASE 61 U/L (30-120); ALT (SGPT) 19 U/L (10-68); BILIRUBIN - DIRECT 0.07 mg/dL (0.00-0.30); BILIRUBIN - TOTAL 0.17 mg/dL (0.2-1.3); URIC ACID 3.9 mg/dL (2.6-7.2)
== END 2021-01-31 13:17 | disposition home or self-care (01) ==
LOC: D.LDO 10:25
PROVIDERS: ATTEND Obstetrics & Gynecology
DX: O16.9 Unspecified maternal hypertension, unspecified trimester (principal)